=== PATIENT | female | born 1960 | race Caucasian/White ===

== ENCOUNTER → 2016-10-18 | Outpatient (CLI) | payer BC ==
[2016-10-18 07:36] LABS: CREATININE 0.8 mg/dL (0.5-1.1)
== END | disposition disaster alternative care site (69) ==
LOC: GLAB 06:49
PROVIDERS: Family Medicine
DX: R22.1 Localized swelling, mass and lump, neck (principal); Z86.79 Personal history of other diseases of the circulatory system
CPT/HCPCS: Q9967

== ENCOUNTER → 2016-10-24 | Outpatient (CLI) | payer BC ==
--- NOTE | ~2016-10-24 | ECHO ---
Transthoracic Echocardiography Report (TTE) Demographics Patient Name MIHAI BOGGS Date of Study 10/24/2016 Patient Number [id number] Visit Number [id number] Date of 1960 Room Number Gender Female Number Age 56 year(s) Referring Ulyssesnaman Nora Micha Tool Design Engineer Leif Mandujano RVT, Physician JAMES SMITH Physician Interpreting Evelin Mandujano Management Instructor Physician Supervising Ordering Evelin Mandujano MD/MLP Physician Nurse Stress Product Safety Lead Conclusions Contractility Score Summary Normal Left Ventricular contractility was noted. Summary Limited echo with definity prior to stress echo. Mild concentric left ventricular hypertrophy. Normal right ventricular size and function. The estimated left ventricular ejection fraction at rest is 60-65%. Stress portion not done due to suboptimal delineation of endocardial borders in some segments of left ventricle due to patient's bodily habitus despite use of Definity contrast. Notified the Primary Physician and the patient Procedure Type of Study TTE procedure:Echo Limited w/ Contrast. Procedure Date Date: 10/24/2016 Start: 12:00 AM Study Location: Echo Lab Technical Quality: Fair due to body habitus. Indications:Chest pain. Appropriate Use Criteria: 8 Patient Status: Routine Contrast Medium: Definity. Amount - 2 ml Rhythm: NSR HR: 91 bpm BP: 134/67 mmHg Findings Left Ventricle Mild concentric left ventricular hypertrophy. Right Ventricle Normal right ventricular size and function. Contractility Score LV regional wall motion:(0-Non visualized 1-Normal 2-Hypokinesis 3-Akinesis 4-Dyskinesis 5-Aneurysm) Signature dtt: DONNA VALLE dtd: 10/24/16 0000 Physician Self Edit
== END | disposition disaster alternative care site (69) ==
LOC: GCAR 09:00
DX: R07.9 Chest pain, unspecified (principal); R79.89 Other specified abnormal findings of blood chemistry; I51.7 Cardiomegaly
CPT/HCPCS: C8924; J1644; Q9957

== ENCOUNTER → 2016-10-27 | Outpatient (CLI) | payer BC ==
--- NOTE | ~2016-10-27 | ESTC ---
Cardiac Perfusion Imaging Demographics Patient Name FLAKITA Muse Gender Female Patient Number [id number] Race Visit Number [id number] Ethnicity Corporate ID Room Number Accession Number [id number] Height 60 inches Date of 1960 Weight 220 pounds PAYROLL ANALYST Interpreting Evelin Date of study 10/27/2016 Physician Delbert Supervising /RUTH RODRIGUEZ Technologist Belkis Mandujano Ordering Physician Evelin Stress Delbert automotive service technician Stress ECG Reading Evelin Nurse Lisseth Pena Physician Delbert Cho Procedure Admit Source:Other. Procedure Type: Nuclear Stress Test:Exercise, Cardiolite Stress Test Procedure Start time: 10/27/2016 09:30 Indications: Pre-op. Risk Factors The patient risk factors include:obesity and hypertension. Conclusions Summary Perfusion Images: The overall quality of the study is fair, due to gastrointestinal tracer uptake. Left ventricular cavity is noted to be normal on the stress and rest studies. There is no evidence of abnormal lung activity. Stress SPECT images and Rest SPECT images demonstrate homogenous tracer distribution throughout the myocardium except for small size mild decrease uptake in the area involving the basal inferolateral wall on stress images. Gated SPECT imaging reveals normal myocardial thickening and wall motion. The left ventricular ejection fraction was calculated to be 73%. Impression ECG portion of the stress test is clinically positive for ischemia by diagnostic criteria. Patient demonstrated good exercise capacity. Myocardial perfusion imaging is mildly abnormal. Images reveal a small sized area of mild basal inferolateral wall ischemia. Gated wall motion is normal with LVEF 73%. This is a low risk stress test. Clinical correlation is recommended. Recommendation Medical therapy Stress Protocols Resting ECG Normal sinus rhythm. Non specific T wave abnormality. Pre-stress physical exam: Patient assessed by Dr Valle prior to testing. Predicted HR: 162 bpm ECG Findings [address] depression with T wave inversion V4-V6 Arrhythmias None Symptoms Dyspnea Stress Interpretation Patient walked by MAUREEN protocol for 8 min. Hypertensive response to exercise. About [address] depression with T wave inversion in anterolateral leads with exercise. EKG portion is positive for ischemia by diagnostic criteria. The Plummer Treadmill score was 3 .This corresponds to a moderate risk stress test. Imaging Results Applied corrections - Motion correction applied High risk findings Summed scores - Summed stress score: 13 - Summed rest score: 6 - Summed difference score: 7 Stress ejection Ejection fraction:73 % EDV :108 ml ESV :29 ml Stroke volume :79 ml LV mass :139 gr Imaging Protocols Rest Stress Isotope:Tc99m Sestamibi IV Isotope: Tc99m Sestamibi IV Isotope dose:14.8 mCi Isotope dose:44.9 mCi Date:10/27/2016 08:14 Date:10/27/2016 09:51 Technique: SPECT Technique: Gated Supine SPECT Supine Scan Time:45-60 minutes post Scan Time:45-60 minutes post injection injection Medical History Admission Data Admission date: 10/27/2016 Admission Time: 07:35 Hospital Status: Outpatient. Signatures dtt: DELBERT VALLE dtd: 10/27/16 0930 Physician Self Edit
== END | disposition disaster alternative care site (69) ==
LOC: GRAD 07:35
DX: Z01.810 Encounter for preprocedural cardiovascular examination (principal); E66.9 Obesity, unspecified; I10 Essential (primary) hypertension; I25.89 Other forms of chronic ischemic heart disease; R94.31 Abnormal electrocardiogram [ECG] [EKG]
CPT/HCPCS: A9500